=== PATIENT | female | born 1990 | race Caucasian/White ===

== ENCOUNTER → 2017-06-02 | Outpatient (CLI) | payer OTHER ==
[~2017-06-02] MED LIST: INSU100C14 SQ; LEVO75TA73 PO; LEVO88TA43 PO; MULT-1176 PO; NOVOLOG SUBQ; Test Strips MC
== END ==
LOC: LAB 14:28
PROVIDERS: ATTEND Nurse Practitioner Family
DX: E10.9 Type 1 diabetes mellitus without complications (principal); E06.3 Autoimmune thyroiditis; E03.9 Hypothyroidism, unspecified
CPT/HCPCS: 36415; 82040; 82247; 82310; 82374; 82435; 82565; 82947; 83036; 84075; 84132; 84155; 84295; 84443; 84450; 84460; 84520

== ENCOUNTER → 2017-07-27 | Outpatient (CLI) | payer OTHER ==
[~2017-07-27] MED LIST changes: +AMPH20CA15 PO; +BLOO-1318 MC; +Diabetes Supplies; +INSU100I35 SQ; +INSU100I5 SUBQ; +PEN1DIS.48 SC
--- NOTE | 2017-07-27 15:02 | EKG ---
FACILITY: [facility] - [place] PATIENT NAME: DANIA POSADA : [id number] MR: [id number] V: [id number] EXAM DATE: ORDERING PHYSICIAN: YAMILA STINSON TECHNOLOGIST: JOYCELYN Test Reason : DAIBETES Blood Pressure : / mmHG Vent. Rate : 073 BPM Atrial Rate : 073 BPM P-R Int : 118 ms QRS Dur : 082 ms QT Int : 368 ms P-R-T Axes : 042 092 027 degrees QTc Int : 405 ms Normal sinus rhythm with sinus arrhythmia Rightward axis No acute appearing findings No previous ECGs available Confirmed by KATLYN BAZZI ([id number]) on 07/28/2017 5:37:55 AM Referred By: SHANTELL Confirmed By:KATLYN BAZZI
== END ==
LOC: RESP 14:51
PROVIDERS: ATTEND Obstetrics & Gynecology
DX: E11.9 Type 2 diabetes mellitus without complications (principal)
CPT/HCPCS: 93005

== ENCOUNTER → 2017-08-02 | Outpatient (CLI) | payer OTHER ==
[~2017-08-02] MED LIST changes: +EPIN0.3P15 IM; +GLUC1VIA2 IM; +[UNRECOGNIZED DRUG - SUPPLY]; +diabetic supplies
== END ==
LOC: LAB 08:49
PROVIDERS: ATTEND Nurse Practitioner Family
DX: E03.9 Hypothyroidism, unspecified (principal)
CPT/HCPCS: 36415; 84443

== ENCOUNTER 2017-08-14 21:31 | Emergency (ER) | payer OTHER ==
[2017-08-14] MEDS ORDERED: INSU100C14 SQ (21:46)
[2017-08-14] MEDS ORDERED: AMPH20CA15 PO ×2 (21:46)
[2017-08-14] MEDS ORDERED: LEVO88TA43 PO (21:46)
[2017-08-14] MEDS ORDERED: INSULIN ASPART 100 UN/ML VIAL SUBQ ONE (21:50)
--- NOTE | 2017-08-14 21:50 | ER Report ---
History and Physical Time Seen By MD: 21:46 Hx. of Stated Complaint: pt ran out of insulin for pump HPI/ROS CHIEF COMPLAINT: out of insulin HISTORY OF PRESENT ILLNESS: This is a 27 year old female. She has type 1 diabetes. She ran out of insulin tonight. Has a pump with basal dosing and has a prescription waiting for her in the morning at the pharmacy. No other problems. She uses Novalog (Aspart) insulin. Allergies: Coded Allergies: Sulfa (Sulfonamide Antibiotics) (Verified Allergy, Mild, 08/14/17) Home Meds Reported Medications Insulin Aspart (NOVOLOG) 100 Unit/1 Ml Cartridge, 40 UNIT SQ DAILY 08/14/17 Amphet Asp/Amphet/D-Amphet (ADDERALL XR 20 MG CAPSULE) 20 Mg Cap.er.24h, 20 MG PO QDAY 08/14/17 Levothyroxine Sodium (SYNTHROID) 88 Mcg Tablet, 88 MCG PO QDAY 08/14/17 Discontinued Reported Medications Amphet Asp/Amphet/D-Amphet (ADDERALL XR 20 MG CAPSULE) 20 Mg Cap.er.24h, 20 MG PO 08/14/17 Hx Substance Use Disorder: No Hx Alcohol Use: No Constitutional Vital Sign - Last 24 Hours 08/14/17 08/14/17 21:39 22:15 Temp 97.7 97.8 Pulse 72 77 Resp 16 16 B/P (MAP) 125/87 126/64 (84) Pulse Ox 91 95 O2 Delivery Room Air Room Air Physical Exam Alert, no acute distress. No other exam done. 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 Decision to Disposition Date: Aug 14, 2017 Decision to Disposition Time: 22:02 Depart Departure Latest Vital Signs Vital Signs Date Time Temp Pulse Resp B/P (MAP) Pulse Ox O2 Delivery O2 Flow Rate FiO2 08/14/17 22:15 97.8 77 16 126/64 (84) 95 Room Air Impression: Primary Impression: Diabetes type I Condition: Improved Disposition: HOME OR SELF-CARE Patient Instructions: Insulin Aspart, Recombinant (By injection) Additional Instructions: No changes at this time. Fill you prescription as planned tomorrow. Problem Qualifiers Primary Impression: Diabetes type I Diabetes mellitus complication status: without complication Qualified Codes: E10.9 - Type 1 diabetes mellitus without complications NERI CORBIN MD Aug 14, 2017 21:50
[2017-08-14 22:15] VITALS: BP 126/64
== END 2017-08-14 22:18 | disposition home or self-care (01) ==
LOC: ER 21:44 → MERGE 21:44 → ER 22:18
DX: E10.9 Type 1 diabetes mellitus without complications (principal)
CPT/HCPCS: 96372; 99281; J1815

== ENCOUNTER → 2017-11-08 | Outpatient (CLI) | payer OTHER ==
[~2017-11-08] MED LIST changes: +NORE-7 PO
[2017-11-08 09:40] LABS: PLATELET COUNT, AUTOMATED 131 K/uL (150-450)
== END ==
LOC: LAB 08:50
PROVIDERS: ATTEND Nurse Practitioner Family
DX: E10.9 Type 1 diabetes mellitus without complications (principal); E03.9 Hypothyroidism, unspecified; Z86.2 Personal history of diseases of the blood and blood-forming organs and certain disorders involving the immune mechanism
CPT/HCPCS: 36415; 83036; 84443; 85025

== ENCOUNTER → 2017-12-21 | Outpatient (CLI) | payer OTHER ==
[2017-12-21 14:19] LABS: PLATELET COUNT, AUTOMATED 164 K/uL (150-450)
== END ==
LOC: LAB 14:07
PROVIDERS: ATTEND Nurse Practitioner Family
DX: D70.9 Neutropenia, unspecified (principal); R71.8 Other abnormality of red blood cells; E10.9 Type 1 diabetes mellitus without complications
CPT/HCPCS: 36415; 82040; 82247; 82310; 82374; 82435; 82565; 82607; 82746; 82947; 84075; 84132; 84155; 84295; 84450; 84460; 84520; 85007; 85027

== ENCOUNTER → 2018-01-19 | Outpatient (CLI) | payer OTHER ==
[2018-01-19 15:27] LABS: PLATELET COUNT, AUTOMATED 161 K/uL (150-450)
== END ==
LOC: LAB 15:05
PROVIDERS: ATTEND Nurse Practitioner Family
DX: R71.8 Other abnormality of red blood cells (principal)
CPT/HCPCS: 36415; 85025

== ENCOUNTER 2018-01-29 22:26 | Emergency (ER) | payer OTHER ==
[2018-01-29 22:32] VITALS: BP 127/89
--- NOTE | 2018-01-29 22:56 | ER Report ---
History and Physical Time Seen By MD: 22:43 Hx. of Stated Complaint: PT STATES" I HAVE A uti" HPI/ROS CHIEF COMPLAINT: dysuria HISTORY OF PRESENT ILLNESS: pt has had 1 d of dysuria without hematuria, back pain, fever, chills, nausea, vomiting. Has had similar in past. Denies abd pain or vaginal bleeding. Has taken 1 azole with some relief of symptoms. type 1 diabetic on insulin pump with well controlled sugars. REVIEW OF SYSTEMS: Respiratory: No cough, no dyspnea. Cardiovascular: No chest pain, no palpitations. Gastrointestinal: No vomiting, no abdominal pain. Musculoskeletal: No back pain. Remainder of the 14 system rev: Yes Allergies: Coded Allergies: oseltamivir (Verified Allergy, Severe, RASH, 06/02/17) Hypotension, rash, itching, shedding of epithelium of mouth and throat Sulfa (Sulfonamide Antibiotics) (Verified Allergy, Mild, 08/15/17) Home Meds Active Scripts Glucagon (GLUCAGEN) 1 Mg Kit, 1 SYR IM PRN, #1 KIT Prov:MOLLY TYLER APRN [facility] 08/03/17 [Dexcom Sensors] No Conflict Check Prov:MOLLY TYLER APRN [facility] 08/02/17 [diabetic supplies] No Conflict Check Prov:MOLLY TYLER APRNP-C 07/29/17 Pen Needle, Diabetic (Insulin Pen Needle) 31 Gauge X 1/6" Dis.needle, EACH SC 5XD, #150 0 Refills Prov:MOLLY TYLER APRN [facility] 07/05/17 [Diabetes Supplies] No Conflict Check Prov:MOLLY TYLER APRN [facility] 06/28/17 Blood Sugar Diagnostic (ONE TOUCH ULTRA TEST STRIPS) 1 Each Strip, 1 EACH MC 6- 10 daily, #250 STRIP 6 Refills Prov:MOLLY TYLER APRNP-C 06/06/17 [Test Strips] 1 EACH No Conflict Check, 1 EACH MC DIRECTED, #300 EACH 12 Refills Prov:MOLLY TYLER APRN [facility] 06/02/17 Insulin Aspart (NOVOLOG) 100 Unit/Ml Soln, 67 UNIT SUBQ DAILY, #2 VIAL 5 Refills Prov:MOLLY TYLER APRN [facility] 06/02/17 Reported Medications Insulin Aspart (NOVOLOG) 100 Unit/1 Ml Cartridge, 40 UNIT SQ DAILY 08/14/17 Amphet Asp/Amphet/D-Amphet (ADDERALL XR 20 MG CAPSULE) 20 Mg Cap.er.24h, 20 MG PO QDAY 08/14/17 Levothyroxine Sodium (SYNTHROID) 88 Mcg Tablet, 88 MCG PO QDAY 08/14/17 Multivits,Ca,Minerals/Iron/Fa (WOMEN'S DAILY CAPLET) 1 Each Tablet, 1 EACH PO DAILY 06/02/17 Discontinued Scripts Noreth A-Et Estra/Fe Fumarate (LO LOESTRIN FE 1-10 TABLET) 1 Each Tablet, 1 TAB PO DAILY, #3 PACK 0 Refills Prov:MOLLY TYLER APRN-Td 11/08/17 Amphet Asp/Amphet/D-Amphet (ADDERALL XR 20 MG CAPSULE) 20 Mg Cap.er.24h, 1 CAP PO DAILY, #30 CAP 0 Refills May fill on or after 01/07/18 Prov:MOLLY TYLER APRN 11/08/17 Levothyroxine Sodium (SYNTHROID) 88 Mcg Tablet, 1 TAB PO QDAY, #90 TAB 1 Refill Prov:MOLLY TYLER APRN-Td 08/02/17 Reviewed Nurses Notes: Yes Smoking Status: Never Smoker Hx Substance Use Disorder: No Hx Alcohol Use: No Constitutional Vital Sign - Last 24 Hours 01/29/18 22:32 Temp 98.1 Pulse 79 Resp 16 B/P (MAP) 127/89 Pulse Ox 98 O2 Delivery Room Air Physical Exam General Appearance: The patient is alert, has no immediate need for airway protection and no current signs of toxicity. [ ] Eyes: Pupils equal and round no injection. Respiratory: Chest is non tender, lungs are clear to auscultation. Cardiac: regular rate and rhythm [ ] Gastrointestinal: Abdomen is soft and non tender, no masses, bowel sounds normal. Musculoskeletal Extremities have full range of motion and are non tender. Skin: No rashes or lesions. [ ] DIFFERENTIAL DIAGNOSIS: After history and physical exam differential diagnosis was considered for uti//pyelonephritis or other emergent etiology Medical Decision Making Data Points Laboratory Hematology Test 01/29/18 22:31 Urine Color Straw Urine Clarity Slightly-cloudy Urine pH 6.0 pH (4.8-9.5) Urine Specific [place] 1.001 Urine Protein Negative mg/dL (NEGATIVE) Urine Glucose (UA) Negative mg/dL (NEGATIVE) Urine Ketones Negative mg/dL (NEGATIVE) Urine Blood Moderate (NEGATIVE) Urine Nitrite Negative (NEGATIVE) Urine Bilirubin Negative (NEGATIVE) Urine Urobilinogen Negative mg/dL (0.2-1.9) Urine Leukocyte Esterase Large (NEGATIVE) Urine RBC <1 /HPF (0-2/HPF) Urine WBC 29 /HPF (0-5/HPF) Urine Squamous Epithelial Cells None /LPF (</=FEW) Urine Bacteria Few /HPF (NONE-FEW) Urine Hyaline Casts Few /LPF (NONE-FEW) Urine Mucus None /HPF (NONE-FEW) Urine HCG, Qualitative Negative (NEGATIVE) Chemistry Test 01/29/18 22:31 Urine Color Straw Urine Clarity Slightly-cloudy Urine pH 6.0 pH (4.8-9.5) Urine Specific [place] 1.001 Urine Protein Negative mg/dL (NEGATIVE) Urine Glucose (UA) Negative mg/dL (NEGATIVE) Urine Ketones Negative mg/dL (NEGATIVE) Urine Blood Moderate (NEGATIVE) Urine Nitrite Negative (NEGATIVE) Urine Bilirubin Negative (NEGATIVE) Urine Urobilinogen Negative mg/dL (0.2-1.9) Urine Leukocyte Esterase Large (NEGATIVE) Urine RBC <1 /HPF (0-2/HPF) Urine WBC 29 /HPF (0-5/HPF) Urine Squamous Epithelial Cells None /LPF (</=FEW) Urine Bacteria Few /HPF (NONE-FEW) Urine Hyaline Casts Few /LPF (NONE-FEW) Urine Mucus None /HPF (NONE-FEW) Urine HCG, Qualitative Negative (NEGATIVE) Urinalysis Test 01/29/18 22:31 Urine Color Straw Urine Clarity Slightly-cloudy Urine pH 6.0 pH (4.8-9.5) Urine Specific [place] 1.001 Urine Protein Negative mg/dL (NEGATIVE) Urine Glucose (UA) Negative mg/dL (NEGATIVE) Urine Ketones Negative mg/dL (NEGATIVE) Urine Blood Moderate (NEGATIVE) Urine Nitrite Negative (NEGATIVE) Urine Bilirubin Negative (NEGATIVE) Urine Urobilinogen Negative mg/dL (0.2-1.9) Urine Leukocyte Esterase Large (NEGATIVE) Urine RBC <1 /HPF (0-2/HPF) Urine WBC 29 /HPF (0-5/HPF) Urine Squamous Epithelial Cells None /LPF (</=FEW) Urine Bacteria Few /HPF (NONE-FEW) Urine Hyaline Casts Few /LPF (NONE-FEW) Urine Mucus None /HPF (NONE-FEW) Urine HCG, Qualitative Negative (NEGATIVE) ED Course/Re-evaluation ED Course UA c/w uti; hcg negative; pt well appearing, non toxic. Will tx with 1st dose abx in ED and d/c with SRp's. Decision to Disposition Date: Jan 29, 2018 Decision to Disposition Time: 22:58 Depart Departure Latest Vital Signs Vital Signs Date Time Temp Pulse Resp B/P (MAP) Pulse Ox O2 Delivery O2 Flow Rate FiO2 01/29/18 22:32 98.1 79 16 127/89 98 Room Air Impression: Primary Impression: UTI (urinary tract infection) Condition: Improved Disposition: HOME OR SELF-CARE Referrals: MOLLY TYLER APRN [facility] (PCP) New Scripts Nitrofurantoin Monohyd/M-Cryst (MACROBID 100 MG CAPSULE) 100 Mg Capsule 100 MG PO BID for 7 Days, #14 CAPSULE Prov: LBAS CRANDALL MD 01/29/18 Additional Instructions: Return for worsening symptoms, vomiting, fevers, adverse reaction to medication, or any concerns. Problem Qualifiers Primary Impression: UTI (urinary tract infection) Urinary tract infection type: acute cystitis Hematuria presence: without hematuria Qualified Codes: N30.00 - Acute cystitis without hematuria BLAS CRANDALL MD Jan 29, 2018 22:55
[2018-01-29] MEDS ORDERED: NITR-105 PO (23:00)
[2018-01-29] MEDS ORDERED: NITROFURANTOIN MONO 100 MG PO ONE (23:00)
== END 2018-01-29 23:23 | disposition home or self-care (01) ==
LOC: ER 22:48
DX: N30.00 Acute cystitis without hematuria (principal)
CPT/HCPCS: 81001; 81025; 99283

== ENCOUNTER 2018-02-07 13:00 | Outpatient (RCR) | payer OTHER ==
--- NOTE | 2017-11-25 14:31 | PT INITIAL EVALUATION ---
MEDICAL DIAGNOSIS: M25.561 R knee pain TREATMENT DIAGNOSIS: Same, R IT band tendinitis, R lateral meniscal pain DATE OF ONSET: 07/07/17 SUBJECTIVE: Babita Floyd presents to PT for insidious onset of lateral R knee ache in the last four months with training on an elliptical 30-40 miles per week. Lateral knee pain increased from ache to sharp stabbing pain to the point she stopped training 2 months ago. 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 Pain location is R lateral knee, distal lateral hamstrings, posterior hip and described as ache (knee, hip), tan (hamstrings). Pain scale is 3 on a ten point pain scale. Pain is worse with and better with Icy Hot patches, Tylenol. REHAB PROBLEM LIST: Increased Pain Decreased ROM Decreased Strength Decreased Function Decreased Gait PREVIOUS MEDICAL HISTORY: DM I (25 years). OCCUPATION: RN, [employer]. OBJECTIVE: Posture: Long R LE by 3/4", valgus knees, everted R calcaneus. ROM: R knee PROM extension -7 degrees, flexion WNL. R hip PROM IR/ER at 90 deg. flexion is 25/40 deg., L 60/60 degrees, capsular end feel. Strength: R quad 4/5, weak VMO contraction, lateral tracking patella. Palpation: Painful distal IT band, anterior horn of the lateral meniscus. No divets palpable at the lateral femoral condyle. Special Tests: Negative ACL, PCL, varus, valgus tests B knee. Rubin's negative for clicks but tender R lateral meniscus. Hamstring flexibility R 60 deg., L 70 degrees. R hip scour with mild posterolateral hip joint pain and tight capsule. Negative R hip LYLE's for pain, mildly tight. Positive Ashish and Laverne's test R LE, L LE mild tightness. Mobility: Normal patellofemoral joint mobility, mild hypomobility with ER R femorotibial joint. Gait: Long R LE, R pronation beyond midstance and 4 toes showing, L 3 toes showing. ASSESSMENT: Babita Floyd presents with R IT band tendinitis, mild lateral meniscal irritation, altered gait and weak R quad with lateral tracking patella from long R LE. She's started on home stretching and an adjustable L heel lift. Short Term Goals/Patient's Goals: One month: Babita exercises with R knee pain 5/10. Two months: Babita exercises on the elliptical with R knee pain 0-2/10. PLAN: Patient to be seen for Manual Therapy Strengthening/condition Ice/Heat Range of Motion Spinal Stabilization Stretching Neuromuscular Re-ed Electrical Stim Gait Trg/Balance Trg Home Exercise Program 2x/Week for 2 Months Thank you for this referral. If you have any questions, comments, or concerns about this report or plan, please contact me at . EDMUNDOD
--- NOTE | 2018-01-31 15:06 | PT PLAN OF CARE ---
Physician: Thelma Lezama APRN, [facility] Patient is being seen: 1-2x/week Therapist: Sagrario Cuevas PT Medical Diagnosis: M25.561 R knee pain Treatment Diagnosis: Same, R IT band tendinitis, R lateral meniscus pain Date of Onset: 07/07/17 Date of Initial Evaluation: 11/25/17 Date patient was last seen: 01/31/18 Number of treatments: 11 Number of cancellations/No shows: 0 INTERVENTIONS: Manual Therapy, Strengthening/condition, Stretching, Home Exercise Program GOALS/PATIENT'S GOAL: One month: Babita exercises with R knee pain 5/10. not met Two months: Babita exercises on the elliptical with R knee pain 0-2/10. progressing Patient Compliance: Excellent Prognosis: Excellent Reasons for continuing therapy: S: Babita's been gone for illness and vacation. She's started back to elliptical 30 min. at a slow pace with R lateral knee pain 3/10. She's doing HEP of stretching. Posture: Long R LE by 3/4", valgus knees, everted R calcaneus. ROM: R knee PROM extension remains -7 degrees, flexion WNL. Strength: R quad 4+/5, moderate VMO contraction, less lateral tracking patella. Palpation: Painful distal IT band. Special Tests: Hamstring flexibility B 70 degrees. Positive L Ashish, negative R Ashish test and negative Laverne's test. The anterolateral hip muscles remain tight. Mobility: Normal knee joint mobility. Gait: With external post, Babita ambulates with mild R Trendelenberg and weak L lumbar stabilizers. A/P: Babita Floyd is improving flexibility and strength, and can continue strengthening with reduced frequency, more HEP. If you agree, we'll continue at 1x/week to 2 weeks for 8 weeks to goals set. Thank you. AICHA
[~2018-02-07 13:00] MED LIST changes: +NITR-105 PO
[2018-02-10] MEDS ORDERED: NOVOLOG SUBQ (09:09)
== END 2018-02-23 ==
LOC: PT 13:00
PROVIDERS: ATTEND Nurse Practitioner Family
DX: M25.561 Pain in right knee (principal)
CPT/HCPCS: 97162

== ENCOUNTER → 2018-03-02 | Outpatient (CLI) | payer OTHER ==
[~2018-03-02] MED LIST changes: +AMPH15TA3 PO; +MUPI15CR2 TP
[2018-03-02 10:40] LABS: PLATELET COUNT, AUTOMATED 164 K/uL (150-450)
== END ==
LOC: LAB 10:07
PROVIDERS: ATTEND Nurse Practitioner Family
DX: E10.9 Type 1 diabetes mellitus without complications (principal); E03.9 Hypothyroidism, unspecified
CPT/HCPCS: 36415; 83036; 85025

== ENCOUNTER → 2018-05-10 | Outpatient (CLI) | payer OTHER | LOC: LAB 09:17 | PROVIDERS: ATTEND Student in an Organized Health Care Education/Training Program | DX: Z34.91 Encounter for supervision of normal pregnancy, unspecified, first trimester (principal) | CPT/HCPCS: 87491; 87591 ==

== ENCOUNTER → 2018-08-29 | Outpatient (CLI) | payer OTHER | LOC: LAB 17:06 | PROVIDERS: ATTEND Nurse Practitioner Family | DX: E10.9 Type 1 diabetes mellitus without complications (principal); E03.9 Hypothyroidism, unspecified | CPT/HCPCS: 36415; 83036; 84443 ==

== ENCOUNTER → 2018-09-25 | Outpatient (CLI) | payer OTHER ==
[~2018-09-25] MED LIST changes: +ASPI-760 PO; +DIPH0.5S2 IM
[2018-09-25 10:08] LABS: PLATELET COUNT, AUTOMATED 173 K/uL (150-450)
== END ==
LOC: LAB 09:57
PROVIDERS: ATTEND Student in an Organized Health Care Education/Training Program
DX: Z34.92 Encounter for supervision of normal pregnancy, unspecified, second trimester (principal)
CPT/HCPCS: 36415; 85025

== ENCOUNTER 2018-10-02 22:28 | Observation (INO) | payer OTHER ==
[~2018-10-02] VITALS: Ht 162.6 cm; Wt 74.8 kg
[2018-10-02] MEDS ORDERED: LR(*) 1000 ML BAG 1,000 ML IV PRN ×2 (22:31→23:34)
[2018-10-02] MEDS ORDERED: DLR(*) 1000 ML BAG 1,000 ML IV PRN (22:31)
[2018-10-02 23:00] VITALS: BP 127/82; Ht 162.6 cm; Wt 74.8 kg
[2018-10-02] MEDS: ONDANSETRON 4 MG/2 ML VIAL IVP PRN (23:39)
[2018-10-02 23:41] LABS: PLATELET COUNT, AUTOMATED 153 K/uL (150-450)
[2018-10-03] MEDS: NS(*) 0.9% 1000 ML BAG 1,000 ML IV SCH ×2 (00:37→04:17)
[2018-10-03] MEDS: PROMETHAZINE 25 MG/ML 1 ML AMP IVP PRN ×2 (00:44→01:39)
[2018-10-03] MEDS ORDERED: APAP/HYDROCODONE 325/5 TAB PO PRN (03:05)
[2018-10-03] MEDS: ONDANSETRON 4 MG/2 ML VIAL IVP PRN (03:20)
--- NOTE | 2018-10-03 09:16 | History & Physical ---
History of Present Illness Age of Patient: 28 : 1 Para or TPAL: 0 Estimated Gestational Age: 30 Chief Complaint contractions History of Present Illness [address] Henson here with report of nausea and vomiting today leading to worsening contractions. Symptoms began shortly after dinner. Pt is Type 1 diabetic with insulin pump management. BS stable in 120s upon arrival. Contractions noted every 4 min and notably uncomfortable. Recent intercourse about 24 hrs ago. Denies vaginal bleeding or leaking fluid. History Allergies: Coded Allergies: oseltamivir (Verified Allergy, Severe, RASH, 06/02/17) Hypotension, rash, itching, shedding of epithelium of mouth and throat Sulfa (Sulfonamide Antibiotics) (Verified Allergy, Mild, 08/15/17) Family History: Disorder of metabolism FATHER FH: myocardial infarction FATHER FH: rheumatoid arthritis MOTHER FH: type 2 diabetes paternal grandmother FHx: coronary artery disease FATHER Med Rec Home Meds Active Scripts [Dexcom Sensors] No Conflict Check Prov:MOLLY TYLER APRN-C 09/27/18 Insulin Aspart (NOVOLOG) 100 Unit/Ml Soln, 102 UNIT SUBQ DAILY, #3 VIAL 4 Refills Prov:MOLLY TYLER APRNP-C 08/29/18 Levothyroxine Sodium (SYNTHROID) 88 Mcg Tablet, 1 TAB PO QDAY, #90 TAB 0 Refills Prov:MOLLY TYLER APRN GYPSUM CALCINER-C 08/16/18 One Touch Ultra Test Strips (ONE TOUCH ULTRA TEST STRIPS) 1 Each Strip, 1 EACH MC 6-10 daily, #250 STRIP 6 Refills Prov:MOLLY TYLER APRN-C 08/16/18 Glucagon (GLUCAGEN) 1 Mg Kit, 1 SYR IM PRN, #1 KIT Prov:MOLLY TYLER APRN GYPSUM CALCINER-C 08/03/17 [diabetic supplies] No Conflict Check Prov:MOLLY TYLER APRN-C 07/29/17 Pen Needle, Diabetic (Insulin Pen Needle) 31 Gauge X 1/6" Dis.needle, EACH SC 5XD, #150 0 Refills Prov:MOLLY TYLER APRNP-C 07/05/17 [Diabetes Supplies] No Conflict Check Prov:MOLLY TYLER APRNP-C 06/28/17 [Test Strips] 1 EACH No Conflict Check, 1 EACH MC DIRECTED, #300 EACH 12 Refills Prov:MOLLY TYLER APRN 06/02/17 Reported Medications Aspirin (LOW DOSE ASPIRIN EC) 81 Mg Tablet.dr, 81 MG PO 09/25/18 Insulin Aspart (NOVOLOG) 100 Unit/1 Ml Cartridge, 40 UNIT SQ DAILY 08/14/17 Multivits,Ca,Minerals/Iron/Fa (WOMEN'S DAILY CAPLET) 1 Each Tablet, 1 EACH PO DAILY 06/02/17 Discontinued Reported Medications Amphet Asp/Amphet/D-Amphet (ADDERALL XR 20 MG CAPSULE) 20 Mg Cap.er.24h, 20 MG PO QDAY 08/14/17 Discontinued Scripts Mupirocin Rajesh 2% Cream (MUPIROCIN 2% CREAM) 15 Gm Cream..g., 1 SIGRID TP TID, #1 TUBE 1 Refill Prov:MOLLY TYLER APRN 03/02/18 Review of Systems All Systems Reviewed/Normal: Yes, Except as Noted Gastrointestinal: Nausea, Vomiting Exam General Exam Vital Signs Vital Signs Date Time Temp Pulse Resp B/P (MAP) Pulse Ox O2 Delivery O2 Flow Rate FiO2 10/02/18 23:00 97.8 110 24 127/82 (97) 96 Cervical Dialation: 0 Cervical Effacement (%): 0 Station: Ballotable Fetus Heart Tone Variabilty: Moderate FHT Accelerations: 10X10 FHT Category: I Medical Decision Making Data Points Result Diagram: 10/02/18 2327 10/02/182326 Hematology Test 10/02/18 22:56 10/02/18 23:27 10/03/18 00:35 10/03/18 01:20 Whole Blood Glucose 124 mg/DL (75-110) Red Blood Count 4.17 M/uL (4.17-5.56) Mean Corpuscular Volume 99.3 fL (80.0-96.0) Mean Corpuscular Hemoglobin 33.3 pg (26.0-33.0) Mean Corpuscular Hemoglobin Concent 33.5 g/dL (32.0-36.0) Red Cell Distribution Width 14.5 % (11.5-14.5) Mean Platelet Volume 8.8 fL (7.2-11.1) Neutrophils (%) (Auto) 90.0 % (39.4-72.5) Lymphocytes (%) (Auto) 4.2 % (17.6-49.6) Monocytes (%) (Auto) 4.1 % (4.1-12.4) Eosinophils (%) (Auto) 0.8 % (0.4-6.7) Basophils (%) (Auto) 0.9 % (0.3-1.4) Nucleated RBC Relative Count (auto) 0.0 /100WBC Neutrophils # (Auto) 5.5 K/uL (2.0-7.4) Lymphocytes # (Auto) 0.3 K/uL (1.3-3.6) Monocytes # (Auto) 0.2 K/uL (0.3-1.0) Eosinophils # (Auto) 0.0 K/uL (0.0-0.5) Basophils # (Auto) 0.1 K/uL (0.0-0.1) Nucleated RBC Absolute Count (auto) 0.00 K/uL Peripheral Blood Smear Yes Y/N Sodium Level 132 mmol/L (137-145) Potassium Level 3.6 mmol/L (3.5-5.0) Chloride Level 105 mmol/L (98-107) Carbon Dioxide Level 18 mmol/L (22-31) Blood Urea Nitrogen 12 mg/dl (7-18) Creatinine 0.50 mg/dl (0.52-1.04) Glomerular Filtration Rate Calc > 60.0 Random Glucose 139 mg/dl (75-110) Calcium Level 8.7 mg/dl (8.4-10.2) Total Bilirubin 0.8 mg/dl (0.2-1.3) Aspartate Amino Transf (AST/SGOT) 36 U/L (0-35) Alanine Aminotransferase (ALT/SGPT) 46 U/L (0-56) Alkaline Phosphatase 130 U/L (0-126) Total Protein 6.7 g/dl (6.3-8.2) Albumin 3.6 g/dl (3.5-5.0) Fibronectin Positive Urine Color Yellow Urine Clarity Clear Urine pH 5.0 pH (4.8-9.5) Urine Specific Howells 1.020 Urine Protein Negative mg/dL (NEGATIVE) Urine Glucose (UA) 50 mg/dL (NEGATIVE) Urine Ketones 80 mg/dL (NEGATIVE) Urine Blood Negative (NEGATIVE) Urine Nitrite Negative (NEGATIVE) Urine Bilirubin Negative (NEGATIVE) Urine Urobilinogen Negative mg/dL (0.2-1.9) Urine Leukocyte Esterase Negative (NEGATIVE) Urine RBC <1 /HPF (0-2/HPF) Urine WBC 1 /HPF (0-5/HPF) Urine Squamous Epithelial Cells Many /LPF (</=FEW) Urine Transitional Epithelial Cells Few /LPF (NONE-FEW) Urine Bacteria Negative /HPF (NONE-FEW) Urine Mucus None /HPF (NONE-FEW) Chemistry Test 10/02/18 22:56 10/02/18 23:27 10/03/18 00:35 10/03/18 01:20 Whole Blood Glucose 124 mg/DL (75-110) White Blood Count 6.1 k/uL (4.5-11.0) Red Blood Count 4.17 M/uL (4.17-5.56) Hemoglobin 13.9 g/dL (12.0-16.0) Hematocrit 41.4 % (34.0-47.0) Mean Corpuscular Volume 99.3 fL (80.0-96.0) Mean Corpuscular Hemoglobin 33.3 pg (26.0-33.0) Mean Corpuscular Hemoglobin Concent 33.5 g/dL (32.0-36.0) Red Cell Distribution Width 14.5 % (11.5-14.5) Platelet Count 153 K/uL (150-450) Mean Platelet Volume 8.8 fL (7.2-11.1) Neutrophils (%) (Auto) 90.0 % (39.4-72.5) Lymphocytes (%) (Auto) 4.2 % (17.6-49.6) Monocytes (%) (Auto) 4.1 % (4.1-12.4) Eosinophils (%) (Auto) 0.8 % (0.4-6.7) Basophils (%) (Auto) 0.9 % (0.3-1.4) Nucleated RBC Relative Count (auto) 0.0 /100WBC Neutrophils # (Auto) 5.5 K/uL (2.0-7.4) Lymphocytes # (Auto) 0.3 K/uL (1.3-3.6) Monocytes # (Auto) 0.2 K/uL (0.3-1.0) Eosinophils # (Auto) 0.0 K/uL (0.0-0.5) Basophils # (Auto) 0.1 K/uL (0.0-0.1) Nucleated RBC Absolute Count (auto) 0.00 K/uL Peripheral Blood Smear Yes Y/N Glomerular Filtration Rate Calc > 60.0 Calcium Level 8.7 mg/dl (8.4-10.2) Total Bilirubin 0.8 mg/dl (0.2-1.3) Aspartate Amino Transf (AST/SGOT) 36 U/L (0-35) Alanine Aminotransferase (ALT/SGPT) 46 U/L (0-56) Alkaline Phosphatase 130 U/L (0-126) Total Protein 6.7 g/dl (6.3-8.2) Albumin 3.6 g/dl (3.5-5.0) Fibronectin Positive Urine Color Yellow Urine Clarity Clear Urine pH 5.0 pH (4.8-9.5) Urine Specific Howells 1.020 Urine Protein Negative mg/dL (NEGATIVE) Urine Glucose (UA) 50 mg/dL (NEGATIVE) Urine Ketones 80 mg/dL (NEGATIVE) Urine Blood Negative (NEGATIVE) Urine Nitrite Negative (NEGATIVE) Urine Bilirubin Negative (NEGATIVE) Urine Urobilinogen Negative mg/dL (0.2-1.9) Urine Leukocyte Esterase Negative (NEGATIVE) Urine RBC <1 /HPF (0-2/HPF) Urine WBC 1 /HPF (0-5/HPF) Urine Squamous Epithelial Cells Many /LPF (</=FEW) Urine Transitional Epithelial Cells Few /LPF (NONE-FEW) Urine Bacteria Negative /HPF (NONE-FEW) Urine Mucus None /HPF (NONE-FEW) Urinalysis Test 10/03/18 01:20 Urine Color Yellow Urine Clarity Clear Urine pH 5.0 pH (4.8-9.5) Urine Specific Howells 1.020 Urine Protein Negative mg/dL (NEGATIVE) Urine Glucose (UA) 50 mg/dL (NEGATIVE) Urine Ketones 80 mg/dL (NEGATIVE) Urine Blood Negative (NEGATIVE) Urine Nitrite Negative (NEGATIVE) Urine Bilirubin Negative (NEGATIVE) Urine Urobilinogen Negative mg/dL (0.2-1.9) Urine Leukocyte Esterase Negative (NEGATIVE) Urine RBC <1 /HPF (0-2/HPF) Urine WBC 1 /HPF (0-5/HPF) Urine Squamous Epithelial Cells Many /LPF (</=FEW) Urine Transitional Epithelial Cells Few /LPF (NONE-FEW) Urine Bacteria Negative /HPF (NONE-FEW) Urine Mucus None /HPF (NONE-FEW) VTE Prophylasis: Adult Deep Vein Thrombosis/Pulmonary: No Pharmacological Contraindicati: Pt at Low Risk for VTE Mechanical Contraindications: Pt at Low Risk for VTE Assessment and Plan Problems: (1) Threatened premature labor affecting , less than 37 weeks in third trimester, antepartum Assessment & Plan: IVF hydration and rest. Will check labs including FFN. If threat low, will hydrate and home with precautions. If threat increases, may consider steroids but risk blood sugar volatility as a result. (2) Diabetes type I Status: Acute Problem Qualifiers (1) Diabetes type I: Diabetes mellitus complication status: without complication Qualified Codes: E10.9 - Type 1 diabetes mellitus without complications AQUILES ALAN MD October 03, 2018 09:16
--- NOTE | 2018-10-03 19:17 | OB/GYN Discharge Summary ---
Discharge Summary Reason for Hosp/Final Diag: (1) Threatened premature labor affecting , less than 37 weeks in third trimester, antepartum Hospital Course & Plan: This morning the patient's contractions have subsided and she is no longer vomiting. She is tolerating po fluids and voiding well. She will eat breakfast to see id she can tolerate food. She did have a + fFN, but she was counseled by nursing of the poor predictive value and that will will just continue to monitor for PTL closely. If she does present with PTL, we will consider steriods, but will not administer at this time because of her Type I diabetes. She was encouraged to hydrate, rest, and return for her regularly scheduled OB visit with Dr. Henson or sooner if needed. 'Dr Henson was consulted on this patient and also spoke to nursing about discharge home. Lates Vital Signs Vital Signs Date Time Temp Pulse Resp B/P (MAP) Pulse Ox O2 Delivery O2 Flow Rate FiO2 10/02/18 23:00 97.8 110 24 127/82 (97) 96 Weight (Pounds): 165 Result Diagram: 10/02/18232610/02/182326 Condition: Improved Discharge: Home Home Meds Active Scripts [Dexcom Sensors] No Conflict Check Prov:MOLLY TYLER APRN-C 09/27/18 Insulin Aspart (NOVOLOG) 100 Unit/Ml Soln, 102 UNIT SUBQ DAILY, #3 VIAL 4 Refills Prov:MOLLY TYLER APRNP-C 08/29/18 Levothyroxine Sodium (SYNTHROID) 88 Mcg Tablet, 1 TAB PO QDAY, #90 TAB 0 Refills Prov:MOLLY TYLER APRNP-C 08/16/18 One Touch Ultra Test Strips (ONE TOUCH ULTRA TEST STRIPS) 1 Each Strip, 1 EACH MC 6-10 daily, #250 STRIP 6 Refills Prov:MOLLY TYLER APRN-C 08/16/18 Glucagon (GLUCAGEN) 1 Mg Kit, 1 SYR IM PRN, #1 KIT Prov:MOLLY TYLER APRNP-C 08/03/17 [diabetic supplies] No Conflict Check Prov:MOLLY TYLER APRN-C 07/29/17 Pen Needle, Diabetic (Insulin Pen Needle) 31 Gauge X 1/6" Dis.needle, EACH SC 5XD, #150 0 Refills Prov:MOLLY TYLER APRN 07/05/17 [Diabetes Supplies] No Conflict Check Prov:MOLLY TYLER APRN 06/28/17 [Test Strips] 1 EACH No Conflict Check, 1 EACH MC DIRECTED, #300 EACH 12 Refills Prov:MOLLY TYLER APRN 06/02/17 Reported Medications Aspirin (LOW DOSE ASPIRIN EC) 81 Mg Tablet.dr, 81 MG PO 09/25/18 Insulin Aspart (NOVOLOG) 100 Unit/1 Ml Cartridge, 40 UNIT SQ DAILY 08/14/17 Multivits,Ca,Minerals/Iron/Fa (WOMEN'S DAILY CAPLET) 1 Each Tablet, 1 EACH PO DAILY 06/02/17 Discontinued Reported Medications Amphet Asp/Amphet/D-Amphet (ADDERALL XR 20 MG CAPSULE) 20 Mg Cap.er.24h, 20 MG PO QDAY 08/14/17 Discontinued Scripts Mupirocin Rajesh 2% Cream (MUPIROCIN 2% CREAM) 15 Gm Cream..g., 1 SIGRID TP TID, #1 TUBE 1 Refill Prov:MOLLY TYLER APRN 03/02/18 Follow up in: Keep scheduled appoint Discharge Diet: As Tolerates, Resume Prior Admit Diet Discharge Activity: As Tolerates SCOTT GLASS CNM October 03, 2018 19:17
== END 2018-10-03 08:56 | disposition home or self-care (01) ==
LOC: OB 22:28
PROVIDERS: ADMIT Obstetrics & Gynecology; ATTEND Obstetrics & Gynecology
DX: O47.03 False labor before 37 completed weeks of gestation, third trimester (principal); O24.013 Pre-existing type 1 diabetes mellitus, in pregnancy, third trimester
CPT/HCPCS: 36416; 59025; 81001; 82731; 82948; 85025; G0378; G0379; J2405; J2550; J7030; J7120; 82040; 82247; 82310; 82374; 82435; 82565; 82947; 84075; 84132; 84155; 84295; 84450; 84460; 84520

== ENCOUNTER 2018-10-05 08:31 | Outpatient (RCR) | payer OTHER ==
[2018-10-02 23:00] VITALS: Wt 80.0 kg
[2018-10-05 08:55] VITALS: BP 113/72
--- NOTE | 2018-10-05 10:29 | ONCOLOGY CONSULTATION ---
EVENT DATE: October 05, 2018 REFERRING PHYSICIAN Thelma Lezama, [employer]IN[employer]IAN [employer], RO[employer]MASTER-C REASON FOR CONSULTATION Establishment of care for a patient with history of aplastic anemia as a child. HEMATOLOGY HISTORY Patient is a 28-year old female who is currently with expected date of delivery December 2018. Patient was diagnosed at the age of 9 after a bone marrow biopsy with aplastic anemia and, as per patient, she was treated at that time with ATG and she remained sick for about 18 months and after that she did not have any problems so far. She has also another autoimmune disease with Irais's disease and her mother had rheumatoid arthritis. Patient currently is and she does not have much complaints except for some symptoms related to her like exertional shortness of breath and mild fatigue. PAST MEDICAL HISTORY 1. Aplastic anemia at the age of 9, in remission. 2. Type 1 diabetes mellitus, on insulin pump. 3. Irais's disease. PAST SURGICAL HISTORY 1. Septoplasty. 2. Bone marrow biopsy as a child. FAMILY HISTORY Mother had rheumatoid arthritis but no family history of cancer or blood diseases. SOCIAL HISTORY Patient is and she does not have children. This is her first . She works as an RN. Denies any abuse of tobacco, alcohol or drugs. CURRENT MEDICATIONS 1. NovoLog insulin. 2. Synthroid 88 mcg daily. 3. vitamins. 4. Baby aspirin 81 mg daily. ALLERGIES Penicillin, which causes itching all over her body and Tamiflu, which causes generalized erythema. REVIEW OF SYSTEMS CONSTITUTIONAL: No appetite or weight change. No fever, chills or sweating. No recent infection. HEENT: Ears: No tinnitus or hearing problem. Nose: No nasal discharge or epistaxis. Throat: No sore throat or mouth ulcers. Eyes: No diplopia or visual changes. RESPIRATORY: She has shortness of breath due to her . CARDIOVASCULAR: No chest pain, orthopnea, or paroxysmal nocturnal dyspnea (PND). No edema. No palpitations. GASTROINTESTINAL: No nausea or vomiting. No diarrhea or constipation. No change in bowel movements. No heartburn or swallowing difficulties. No abdominal pain. No jaundice. No hematemesis, melena or rectal bleeding. GENITOURINARY: Patient has had heavy periods for years, and she has been seen by a binder layer, and she was offered uterine ablation, but the patient refused the procedure. As per patient, she has had heavy periods for a total of seven days every month. MUSCULOSKELETAL: No pain in the muscles, joints or bones. NEUROLOGICAL: No tingling or numbness in the hands or feet. No headaches or convulsions. HEMATOLOGIC/LYMPHATIC: She has mild fatigue. SKIN: No skin rash or lumps. PSYCHIATRIC: No anxiety or depression. PHYSICAL EXAMINATION GENERAL: Looks stable. Well-developed, well-nourished, and in no acute distress. VITAL SIGNS: Blood pressure 113/72, pulse 84 per minute, respirations 16 per minute, temperature 97.5, pulse ox 96% on room air. HEENT: Head: Atraumatic. No sinus tenderness to palpation. Eyes: No icterus or conjunctivitis. Mouth and Throat: No oral thrush or mucositis. NECK: Supple. No cervical or supraclavicular lymphadenopathy. LUNGS: Clear to auscultation and percussion bilaterally. HEART: Regular rate and rhythm. No gallops, murmurs, clicks or rubs. ABDOMEN: Distended because of her . EXTREMITIES: No cyanosis, clubbing or edema. LYMPHATICS: No peripheral lymphadenopathy. NEUROLOGICAL: Conscious, alert and oriented x3. No focal motor or sensory deficits. PSYCHIATRIC: Mood and affect appear normal. SKIN: No skin rash, bruise or purpuric eruption. LABORATORY [*] IMPRESSION History of aplastic anemia at the age of 9, diagnosed after bone marrow aspiration biopsy and patient treated with ATG and currently in remission. Her last CBC done on October 02, 2018, showed white count 6.1, hemoglobin 13.9, hematocrit 41.4, platelets 153,000. All her blood counts are within the normal range and no hematological intervention is required at the moment. I am planning to check her CBC once a month during her and after that we will space the CBC every three to six months to be checked. I am planning to see her in three months from now with CBC. Patient was advised to contact us for any problems related to her blood count. PLAN 1. CBC once monthly. 2. Patient to return in three months with CBC. 3. Patient to contact us for any concerns or complaints. AICHA
== END 2018-11-06 15:44 | disposition home or self-care (01) ==
LOC: ONC 08:31
PROVIDERS: ATTEND Internal Medicine Hematology
DX: D61.9 Aplastic anemia, unspecified (principal); R53.83 Other fatigue; Z3A.00 Weeks of gestation of pregnancy not specified
CPT/HCPCS: 99213

== ENCOUNTER → 2018-10-12 | Outpatient (CLI) | payer OTHER ==
[2018-10-02 23:00] VITALS: BMI 28.3
== END ==
LOC: LAB 11:37
PROVIDERS: ATTEND Obstetrics & Gynecology
DX: E10.9 Type 1 diabetes mellitus without complications (principal); O09.93 Supervision of high risk pregnancy, unspecified, third trimester
CPT/HCPCS: 36415; 83036

== ENCOUNTER → 2018-10-18 | Outpatient (CLI) | payer OTHER ==
[2018-10-02 23:00] VITALS: BMI 28.3
--- NOTE | 2018-10-18 11:36 | RADIOLOGY IMAGING REPORT ---
FACILITY: [facility] - [place] PATIENT NAME: Babita Floyd : 1990 MR: [id number] V: [id number] EXAM DATE: ORDERING PHYSICIAN: ANG PEREYRA TECHNOLOGIST: Location: [facility] Patient: Babita Floyd : 1990 Visit/Account:[id number] Date of Sevice: 10/18/2018 EXAMINATION: Ultrasound transabdominal OB > 14 weeks with anatomic evaluation HISTORY: Type I diabetes and third trimester, for EFW and AMY COMPARISON: None. TECHNIQUE: Transabdominal imaging was performed for assessment of the fetus and maternal pelvic structures. T ransvaginal imaging was not performed. FINDINGS: Placenta: Anterior without previa. Uterus: Gravid, otherwise normal Cervix: Long and closed. Maternal Ovaries: Not visualized. Maternal and other adnexa findings: Not visualized Intrauterine gestations: One. presentation: Cephalic heart rate: Normal and regular at 1:30 bpm Amniotic fluid index: 14.25 cm Largest amniotic fluid pocket: 4.87 cm Gestational Parameters: BPD: 7.91 cm 31 weeks/ six days, 50% HC: 28.57 cm 31 weeks/ three days, 14% AC: 28.92 cm there 23 weeks/ zero days, 87% FL: 5.74 cm 30 weeks/ one days, 9% Average ultrasound age (AUA): 31 weeks/five days, ALLAN 12/15/2018 Estimated gestational age by LMP: 31 weeks/three days, ALLAN 12/17/2018 Estimated weight (EFW): 1846 grams +/- 270 grams EFW for ALLAN: 52 percentile Anatomic Survey: Anatomic survey not performed IMPRESSION: Single viable fetus in cephalic presentation with an estimated gestational age by measur ements of 31 weeks and five days. Estimated gestational age by LMP is 31 weeks and three days. Estimated weight 1846 g equivalent to the 52nd percentile AMY measured 14.25 cm, MVP 4.87 cm Report Dictated By: Stacy Meza MD at 10/18/2018 11:28 AM Report E-Signed By: Stacy Meza MD at 10/18/2018 11:31 AM LIANEN:JING
== END ==
LOC: US 01:16
PROVIDERS: ATTEND Obstetrics & Gynecology
DX: O09.93 Supervision of high risk pregnancy, unspecified, third trimester (principal); E10.9 Type 1 diabetes mellitus without complications
CPT/HCPCS: 76815

== ENCOUNTER 2018-10-20 13:00 | Outpatient (RCR) | payer OTHER ==
--- NOTE | 2018-09-29 20:55 | PT INITIAL EVALUATION ---
MEDICAL DIAGNOSIS: Thoracic Back Pain TREATMENT DIAGNOSIS: Thoracic Back Pain, Abnormal Posture, Rhomboid Strain DATE OF ONSET: 09/29/18 SUBJECTIVE: Babita is a 28 year old female presenting to physical therapy following recent onset of thoracic pain on the R side that has been present for the last month or two. Pt is 30 weeks and reports that she has had this pain before but that it has progressively got worse throughout the . Pain is increased with computer work for long durations at work or lifting. Pain is currently rated at 1/10, but at the end of the day is more 2- 3/10. Pain reaches 7/10 at worst. Pain is described as burning and occasionally sharp but typically dull and nagging with pain never moving from the one location central or peripherally. REHAB PROBLEM LIST: Increased Pain Decreased Strength Decreased Function Decreased ADL's PREVIOUS MEDICAL HISTORY: PMH significant for Type 1 DM OCCUPATION: Nurse on Med/Surg floor at [employer] OBJECTIVE: Pt is left handed Posture: Pt presents with increased thoracic kyphosis with rounded forward shoulders and B scapulas abducted. ROM: Shoulder ROM: full without pain B excluding horizontal adduction with pain on R. Pt has significant scapular elevation with overhead reaching Thoracic ROM: full with slight pain with flexion. Strength: Shoulder MMT (R, L): flexion: B 5/5 Ext: 4/5, 5/5, abd: B 4+/5, ER: 4+/5, 5/5, IR: B 5/5 Palpation: Pt is ttp along the R rhomboids and distal attachments at scapular border. Sensation: Pt denies numbness or tingling in UE or shoulder. ASSESSMENT: Babita displays signs and symptoms consistent with R rhomboid strain as indicated by the above listed impairments. Physical therapy is indicated to improve pt function with ADL's and occupational demands. Short Term Goals In 4 weeks pt will reduce thoracic/scapular pain to 0/10 with ADL's for improved function. In 4 weeks pt will have full thoracic ROM without pain for improved function with ADL's. In 4 weeks pt will improve B shoulder strength to 5/5 without pain for improved function with ADL's. Patient's Goals Decrease thoracic/scapular pain. PLAN: Patient to be seen for Manual Therapy/STM/MET Strengthening/condition Ice/Heat Range of Motion Spinal Stabilization Ultrasound Stretching Iontophoresis Neuromuscular Re-ed Electrical Stim Posture/Body mechanics [facility] Therapeutic Activities 2x/Week for 4 Weeks If you have any questions, comments, or concerns about this report or plan, please contact me at . Thank you, Ina Navarro, PT, DPT, CLT MTDD
[2018-10-02 23:00] VITALS: BMI 28.3
== END 2018-10-20 18:00 | disposition home or self-care (01) ==
LOC: PT 13:00
PROVIDERS: ATTEND Nurse Practitioner Family
DX: M54.6 Pain in thoracic spine (principal); R29.3 Abnormal posture; E10.8 Type 1 diabetes mellitus with unspecified complications; O99.89 Other specified diseases and conditions complicating pregnancy, childbirth and the puerperium; Z3A.30 30 weeks gestation of pregnancy; O24.011 Pre-existing type 1 diabetes mellitus, in pregnancy, first trimester
CPT/HCPCS: 97161

== ENCOUNTER → 2018-10-23 | Outpatient (CLI) | payer OTHER ==
[2018-10-02 23:00] VITALS: BMI 28.3
== END ==
LOC: LAB 06:34
PROVIDERS: ATTEND Obstetrics & Gynecology
DX: O24.013 Pre-existing type 1 diabetes mellitus, in pregnancy, third trimester (principal)
CPT/HCPCS: 84156

== ENCOUNTER → 2018-11-02 | Outpatient (CLI) | payer OTHER ==
[2018-10-02 23:00] VITALS: BMI 28.3
[2018-11-02 13:54] LABS: PLATELET COUNT, AUTOMATED 159 K/uL (150-450)
== END ==
LOC: LAB 13:42
PROVIDERS: ATTEND Internal Medicine Hematology
DX: D61.9 Aplastic anemia, unspecified (principal)
CPT/HCPCS: 36415; 85025

== ENCOUNTER → 2018-11-08 | Outpatient (CLI) | payer OTHER ==
[2018-10-02 23:00] VITALS: BMI 28.3
--- NOTE | 2018-11-08 15:17 | RADIOLOGY IMAGING REPORT ---
FACILITY: [facility] - [place] PATIENT NAME: Babita Floyd : 1990 MR: [id number] V: [id number] EXAM DATE: ORDERING PHYSICIAN: KOFI ROMEO TECHNOLOGIST: Location: [facility] [place] Patient: Babita Floyd : 1990 Visit/Account:[id number] Date of Sevice: 11/08/2018 EXAMINATION: Ultrasound transabdominal OB > 14 weeks with anatomic evaluation HISTORY: Type I diabetes, size greater than dates COMPARISON: October 18, 2018 TECHNIQUE: Transabdominal imaging was performed for assessment of the fetus and maternal pelvic structures. T ransvaginal imaging was not performed. FINDINGS Placenta: Anterior without previa. Uterus: Gravid, otherwise normal Cervix: Closed Intrauterine gestations: One. presentation: Vertex heart rate: Normal and regular at 150 bpm Amniotic fluid index: 9.8 cm Largest amniotic fluid pocket: 2.6 cm Gestational Parameters: BPD: 8.6 cm 34 weeks, 6 days, 59th percentile HC: 30.9 cm 34 weeks, 4 days, 18th percentile AC: 32.3 cm 36 weeks, 2 days, 94th percentile FL: 6.8 cm 35 weeks, 3 days, 65th percentile Average ultrasound age (AUA): 35 weeks 2 days, ALLAN based on AUA 12/11/2018 Estimated weight (EFW): 2735 grams +/- 400 grams EFW: 80th percentile Anatomic survey was not performed. IMPRESSION: 1. Single live early intrauterine gestation with dates and measurements as above 2. Estimated weight 80th percentile, 2735 g 3. Amniotic fluid index 9.8 cm Report Dictated By: Irwin Gardner DO at 11/08/2018 3:05 PM Report E-Signed By: Irwin Gardner DO at 11/08/2018 3:09 PM WSN:[email or web address]
== END ==
LOC: US 00:05
PROVIDERS: ATTEND Obstetrics & Gynecology
DX: O09.90 Supervision of high risk pregnancy, unspecified, unspecified trimester (principal); E10.9 Type 1 diabetes mellitus without complications
CPT/HCPCS: 76815

== ENCOUNTER → 2018-11-21 | Outpatient (CLI) | payer OTHER ==
[2018-10-02 23:00] VITALS: BMI 28.3
== END ==
LOC: LAB 09:49
PROVIDERS: ATTEND Advanced Practice Midwife
DX: Z36.85 Encounter for antenatal screening for Streptococcus B (principal)
CPT/HCPCS: 87081

== ENCOUNTER 2018-12-20 20:36 | Emergency (ER) | payer OTHER ==
[2018-10-02 23:00] VITALS: Wt 68.0 kg
--- NOTE | 2018-12-20 20:53 | ER Report ---
History and Physical Time Seen By MD: 20:49 Hx. of Stated Complaint: GOT OUT OF SHOWER AND FELT VERY SHORT OF BREATH, DIZZY AND HOT. STATES SHE GAVE 9U INSULIN AT DINNER. HAS HAD THIS DINNER BEFORE AND GAVE HERSELF 7U INSULIN WHICH WAS NOT ENOUGH SO SHE TRIED 9U TODAY. HAD A ON November HPI/ROS CHIEF COMPLAINT: dizziness and shortness of breath HISTORY OF PRESENT ILLNESS: This is a 28 year old female. She was feeling hot, dizzy and short of breath tonight. Had taken extra insulin at dinner for type 1 diabetes, and did have a low blood sugar at that time. This has since come back up and she is feeling a little better. The shortness of breath was concerning. She is a few weeks out from a , and is improving. . Has felt like she had a fever yesterday. No nausea or vomiting. Bowels have been normal. No dysuria or frequency. No headache, normal vision. No chest pain or palpitations. No cough. REVIEW OF SYSTEMS: As above. Allergies: Coded Allergies: oseltamivir (Verified Allergy, Severe, RASH, 12/20/18) Hypotension, rash, itching, shedding of epithelium of mouth and throat Sulfa (Sulfonamide Antibiotics) (Verified Allergy, Mild, 12/20/18) Penicillins (Verified Allergy, Unknown, 12/20/18) Home Meds Active Scripts Nitrofurantoin Monohyd/M-Cryst (MACROBID 100 MG CAPSULE) 100 Mg Capsule, 100 MG PO BID for 5 Days, #10 CAPSULE 0 Refills Prov:NERI CORBIN MD 12/21/18 Breast Pump (Breast Pump) 1 Each Each, EA for Mother, #1 0 Refills Use double electric breast pump as directed / needed for support. : 91 Prov:AIME AGUIAR DO 12/20/18 Methylphenidate Hcl (METHYLPHENIDATE ER) 36 Mg Tab.er.24, 1 TAB PO QDAY, #30 TAB 0 Refills Prov:MOLLY TYLER APRNP-C 12/19/18 [Dexcom Sensors] No Conflict Check Prov:MOLLY TYLER APRN RESERVE OPERATOR-C 09/27/18 Insulin Aspart (NOVOLOG) 100 Unit/Ml Soln, 102 UNIT SUBQ DAILY, #3 VIAL 4 Refills Prov:MOLLY TYLER JERAMIE RESERVE OPERATOR-C 08/29/18 Levothyroxine Sodium (SYNTHROID) 88 Mcg Tablet, 1 TAB PO QDAY, #90 TAB 0 Refills Prov:IGGY TYLERWALDEMAR BOBO RESERVE OPERATOR-C 08/16/18 One Touch Ultra Test Strips (ONE TOUCH ULTRA TEST STRIPS) 1 Each Strip, 1 EACH MC 6-10 daily, #250 STRIP 6 Refills Prov:ELIAN-DAJUANMOLLY BOBO RESERVE OPERATOR-C 08/16/18 Glucagon (GLUCAGEN) 1 Mg Kit, 1 SYR IM PRN, #1 KIT Prov:OMLLY TYLER APRN RESERVE OPERATOR-C 08/03/17 [diabetic supplies] No Conflict Check Prov:KWASIDAJUANIGGYMOLLYWALDEMAR BOBO RESERVE OPERATOR-C 07/29/17 Pen Needle, Diabetic (Insulin Pen Needle) 31 Gauge X 1/6" Dis.needle, EACH SC 5XD, #150 0 Refills Prov:MOLLY TYLER APRN RESERVE OPERATOR-C 07/05/17 [Diabetes Supplies] No Conflict Check Prov:ELIAN-DAJUANMOLLY BOBO RESERVE OPERATOR-C 06/28/17 [Test Strips] 1 EACH No Conflict Check, 1 EACH MC DIRECTED, #300 EACH 12 Refills Prov:IGGY TYLERWALDEMAR BOBO RESERVE OPERATOR-C 06/02/17 Reported Medications Cholecalciferol (Vitamin D3) (VITAMIN D3) 1,000 Unit Tablet, 1000 UNIT PO, TAB 12/19/18 Insulin Aspart (NOVOLOG) 100 Unit/1 Ml Cartridge, 40 UNIT SQ DAILY 08/14/17 Multivits,Ca,Minerals/Iron/Fa (WOMEN'S DAILY CAPLET) 1 Each Tablet, 1 EACH PO DAILY 06/02/17 Discontinued Reported Medications Aspirin (LOW DOSE ASPIRIN EC) 81 Mg Tablet.dr, 81 MG PO 09/25/18 Reviewed Nurses Notes: Yes Hx Smoking: No Smoking Status: Never Smoker Exposure to Second Hand Smoke?: No Hx Substance Use Disorder: No Hx Alcohol Use: No Constitutional Vital Sign - Last 24 Hours 12/20/18 12/20/18 12/20/18 12/20/18 20:46 21:00 21:30 21:35 Temp 98.0 Pulse 73 70 76 74 Resp 20 B/P (MAP) 105/71 101/66 (78) Pulse Ox 90 93 95 94 O2 Delivery Room Air 12/20/18 12/20/18 12/20/18 12/20/18 21:50 22:00 22:05 23:05 Pulse 74 76 80 B/P (MAP) 107/60 (76) 96/73 (81) 118/72 (87) Pulse Ox 95 96 12/20/18 12/20/18 12/20/18 12/20/18 23:20 23:30 23:35 23:50 Pulse 68 70 71 B/P (MAP) 112/75 (87) Pulse Ox 96 93 90 12/21/18 12/21/18 00:00 00:05 Pulse 78 B/P (MAP) 101/65 (77) Pulse Ox 96 Intake and Output 12/20/18 12/20/18 12/21/18 15:04 23:04 07:04 Intake Total 1000 ml Balance 1000 ml Physical Exam General Appearance: The patient is alert. No acute distress. Non-toxic in appearance. Eyes: Pupils are equal, round. No pallor, injection or icterus. ENT: Mucous membranes are moist. Normal oral mucosa. Posterior oropharynx is normal. Neck: Supple and non tender. No lymphadenopathy. Respiratory: Lungs are clear to auscultation. Cardiovascular: Regular rate and rhythm. No murmurs, gallops or rubs. Normal capillary refill. No edema. Gastrointestinal: Abdomen is soft and non tender. Nondistended. Normal active bowel sounds. incision healing well, slight firmness under skin, scar tissue forming as expected. Neurological: Alert and oriented x3. No focal neurologic deficits Skin: Warm and dry. No rashes. Musculoskeletal: Extremities are nontender. Full range of motion. DIFFERENTIAL DIAGNOSIS: After history and physical exam, differential diagnosis was considered for nonspecific symptoms. Will check labs including metabolic panel, troponin, blood count and urine test. EKG and chest x-ray. Blood sugars now back to normal and symptoms are mostly gone. Medical Decision Making Data Points Result Diagram: 12/20/18211612/20/182116 Laboratory Hematology Test 12/20/18 21:17 White Blood Count 5.4 k/uL (4.5-11.0) Red Blood Count 3.99 M/uL (4.17-5.56) L Hemoglobin 13.2 g/dL (12.0-16.0) Hematocrit 38.6 % (34.0-47.0) Mean Corpuscular Volume 96.6 fL (80.0-96.0) H Mean Corpuscular Hemoglobin 33.0 pg (26.0-33.0) Mean Corpuscular Hemoglobin Concent 34.2 g/dL (32.0-36.0) Red Cell Distribution Width 15.1 % (11.5-14.5) H Platelet Count 297 K/uL (150-450) Mean Platelet Volume 7.5 fL (7.2-11.1) Neutrophils (%) (Auto) 63.7 % (39.4-72.5) Lymphocytes (%) (Auto) 26.0 % (17.6-49.6) Monocytes (%) (Auto) 8.3 % (4.1-12.4) Eosinophils (%) (Auto) 0.9 % (0.4-6.7) Basophils (%) (Auto) 1.1 % (0.3-1.4) Nucleated RBC Relative Count (auto) 0.0 /100WBC Neutrophils # (Auto) 3.5 K/uL (2.0-7.4) Lymphocytes # (Auto) 1.4 K/uL (1.3-3.6) Monocytes # (Auto) 0.5 K/uL (0.3-1.0) Eosinophils # (Auto) 0.0 K/uL (0.0-0.5) Basophils # (Auto) 0.1 K/uL (0.0-0.1) Nucleated RBC Absolute Count (auto) 0.00 K/uL Chemistry Test 12/20/18 21:17 Sodium Level 139 mmol/L (137-145) Potassium Level 3.5 mmol/L (3.5-5.0) Chloride Level 103 mmol/L (98-107) Carbon Dioxide Level 25 mmol/L (22-31) Blood Urea Nitrogen 19 mg/dl (7-18) Creatinine 0.90 mg/dl (0.52-1.04) Glomerular Filtration Rate Calc > 60.0 Random Glucose 98 mg/dl (75-110) Calcium Level 9.5 mg/dl (8.4-10.2) Total Bilirubin 0.3 mg/dl (0.2-1.3) Aspartate Amino Transf (AST/SGOT) 22 U/L (0-35) Alanine Aminotransferase (ALT/SGPT) 32 U/L (0-56) Alkaline Phosphatase 124 U/L (0-126) Troponin I < 0.012 ng/ml Total Protein 7.3 g/dl (6.3-8.2) Albumin 3.9 g/dl (3.5-5.0) Coagulation Test 12/20/18 21:17 D-Dimer Quantitative (PE/DVT) 2.90 ug/ml (0-0.50) Urinalysis Test 12/20/18 21:46 Urine Color Yellow Urine Clarity Cloudy Urine pH 5.0 pH (4.8-9.5) Urine Specific Bode 1.014 Urine Protein 30 mg/dL (NEGATIVE) Urine Glucose (UA) Negative mg/dL (NEGATIVE) Urine Ketones Negative mg/dL (NEGATIVE) Urine Blood Large (NEGATIVE) Urine Nitrite Negative (NEGATIVE) Urine Bilirubin Negative (NEGATIVE) Urine Urobilinogen Negative mg/dL (0.2-1.9) Urine Leukocyte Esterase Large (NEGATIVE) Urine RBC 91 /HPF (0-2/HPF) Urine WBC 1299 /HPF (0-5/HPF) Urine WBC Clumps Many /HPF Urine Squamous Epithelial Cells Many /LPF (</=FEW) Urine Bacteria Few /HPF (NONE-FEW) Urine Hyaline Casts Moderate /LPF (NONE-FEW) Urine Mucus Few /HPF (NONE-FEW) EKG/Imaging EKG Interpretation 12 lead EKG: Rhythm: Sinus rhythm with sinus arrhythmia, rate 67, sinus arrhythmia lo oks like changes with respiration. Usk: normal QRS: normal ST segments: normal Imaging CHEST SINGLE AP COMPARISONS: None. ADDITIONAL PERTINENT HISTORY: Shortness of breath with recent section FINDINGS: Cardiomediastinal silhouette: Negative. Pulmonary vasculature: Negative. Lung daniel: Negative. Pleural spaces: Negative. Osseous structures: Negative. Surrounding soft tissues: Negative. IMPRESSION: No evidence of acute cardiopulmonary disease. Report Dictated By: Júnior Sun MD at 12/20/2018 10:[address] PE DATE: 12/20/2018 11:20 PM INDICATION: Short of breath. COMPARISON: Same-day radiograph. TECHNIQUE: Axial CT angiogram was obtained through the chest with intravenous contrast. Sagittal and coronal MPR and MIP coronal reformations were also generated. 75 mL isovue 370. One of the following dose optimization techniques was utilized in the performance of this exam: Automated exposure control; adjus tment of the mA and/or kV according to the patient's size; or use of an iterative reconstruction technique. Specific details can be referenced in the facility's radiology CT exam operational policy. FINDINGS: Thyroid / Thoracic Inlet: No visualized thyroid nodule. Shotty lymph nodes are likely reactive. Pulmonary Arteries: Normal. Heart and Aorta: Normal-size heart with no pericardial effusion. Nonaneurysmal thoracic aorta. Mediastinum and Anh: No lymphadenopathy. Lungs and Pleura: No pleural effusion or pneumothorax. No suspicious consolidation. Breast and Axilla: No axillary lymphadenopathy. Upper Abdomen: No visualized acute abnormality. Bones and Soft Tissues: No acute abnormality or suspicious lesion. IMPRESSION: No pulmonary embolism or other acute abnormality. Report Dictated By: Renato Singh MD at 12/20/2018 11:20 PM ED Course/Re-evaluation Clinical Indication for ER IV: Hydration, IV Access ED Course Labs look good. Blood sugars back to normal. Her d-dimer was elevated, likely due to the recent and healing, but with the shortness of breath which resolved her we went ahead and did a CT angiogram. Initial chest x-ray negative. CT angiogram of the chest was negative for PE. Urinalysis did come back showing signs of urinary tract infection. Think her symptoms earlier tonight were likely a combination of the low blood sugar as well as her urinary tract infection. She is breast-feeding and has different allergies to antibiotics, so we'll go with Macrobid. Because her child is young with a history of some jaundice we will have her pump and discard breast milk and bottle feed while she is on the Macrobid. Decision to Disposition Date: Dec 21, 2018 Decision to Disposition Time: 00:09 Depart Departure Latest Vital Signs Vital Signs Date Time Temp Pulse Resp B/P (MAP) Pulse Ox O2 Delivery O2 Flow Rate FiO2 12/21/18 00:05 78 96 12/21/18 00:00 101/65 (77) 12/20/18 20:46 98.0 20 Room Air Impression: Primary Impression: Hypoglycemia due to type 1 diabetes mellitus Additional Impression: Urinary tract infection Condition: Improved Disposition: HOME OR SELF-CARE Referrals: AIME AGUIAR DO (PCP) New Scripts Nitrofurantoin Monohyd/M-Cryst (MACROBID 100 MG CAPSULE) 100 Mg Capsule 100 MG PO BID for 5 Days, #10 CAPSULE 0 Refills Prov: NERI CORBIN MD 12/21/18 Patient Instructions: Urinary Tract Infection in Women (ED) Additional Instructions: We think you symptoms tonight were a combination of the low blood sugar and p ossible urinary tract infection. The rest of the workup tonight was negative. Increase fluid intake. Take Macrobid 100mg twice a day for 5 days. This is generally safe in infants that are with two exceptions. Infants with G6PD deficiency and infants < 1 month who have hyperbilirubinemia. For this reason, we would like to have you bottle feed for the next 7 days, and pump and discard breast milk. Follow-up with your primary care provider as planned. Problem Qualifiers Additional Impression: Urinary tract infection Urinary tract infection type: acute cystitis Hematuria presence: without hematuria Qualified Codes: N30.00 - Acute cystitis without hematuria NERI CORBIN MD Dec 20, 2018 20:53
[2018-12-20 21:27] LABS: PLATELET COUNT, AUTOMATED 297 K/uL (150-450)
--- NOTE | 2018-12-20 21:57 | EKG ---
FACILITY: [facility] PATIENT NAME: DANIA POSADA : [id number] MR: [id number] V: [id number] EXAM DATE: ORDERING PHYSICIAN: NERI CORBIN TECHNOLOGIST: LESTER Diego Reason : SOB Blood Pressure : / mmHG Vent. Rate : 067 BPM Atrial Rate : 067 BPM P-R Int : 134 ms QRS Dur : 076 ms QT Int : 380 ms P-R-T Axes : 027 086 033 degrees QTc Int : 401 ms Sinus rhythm with marked sinus arrhythmia No acute appearing findings When compared with ECG of 27-JUL-2017 14:57, No significant change was found Confirmed by KATLYN BAZZI ([id number]) on 12/21/2018 5:37:18 AM Referred By: Confirmed By:KATLYN BAZZI
--- NOTE | 2018-12-20 22:11 | RADIOLOGY IMAGING REPORT ---
FACILITY: [facility] PATIENT NAME: Babita Floyd : 1990 MR: [id number] V: [id number] EXAM DATE: ORDERING PHYSICIAN: NERI CORBIN TECHNOLOGIST: Location: [facility] - [place], [place] Patient: Babita Floyd : 1990 Visit/Account:[id number] Date of Sevice: 12/20/2018 CHEST SINGLE AP COMPARISONS: None. ADDITIONAL PERTINENT HISTORY: Shortness of breath with recent section FINDINGS: Cardiomediastinal silhouette: Negative. Pulmonary vasculature: Negative. Lung daniel: Negative. Pleural spaces: Negative. Osseous structures: Negative. Surrounding soft tissues: Negative. IMPRESSION: No evidence of acute cardiopulmonary disease. Report Dictated By: Júnior Sun MD at 12/20/2018 10:01 PM Report E-Signed By: Júnior Sun MD at 12/20/2018 10:03 PM WSN:[id number]
[2018-12-20] MEDS ORDERED: NS(*) 0.9% 1000 ML BAG 1,000 ML IV ONE (22:15)
[2018-12-20] MEDS ORDERED: IOPAMIDOL 76% 100 ML INFUS BTL 100 ML ONE (22:41)
[2018-12-20] MEDS ORDERED: NS(*) 0.9% 50 ML BAG 50 ML ONE (22:41)
--- NOTE | 2018-12-20 23:41 | RADIOLOGY IMAGING REPORT ---
FACILITY: [facility] PATIENT NAME: Babita Floyd : 1990 MR: [id number] V: [id number] EXAM DATE: ORDERING PHYSICIAN: NERI CORBIN TECHNOLOGIST: Location: [facility] Patient: Babita Floyd : 1990 Visit/Account:[id number] Date of Sevice: 12/20/2018 CT PE DATE: 12/20/2018 11:20 PM INDICATION: Short of breath. COMPARISON: Same-day radiograph. TECHNIQUE: Axial CT angiogram was obtained through the chest with intravenous contrast. Sagittal an d coronal MPR and MIP coronal reformations were also generated. 75 mL isovue 370. One of the follow ing dose optimization techniques was utilized in the performance of this exam: Automated exposure con trol; adjustment of the mA and/or kV according to the patient's size; or use of an iterative reconst ruction technique. Specific details can be referenced in the facility's radiology CT exam operationa l policy. FINDINGS: Thyroid / Thoracic Inlet: No visualized thyroid nodule. Shotty lymph nodes are likely reactive. Pulmonary Arteries: Normal. Heart and Aorta: Normal-size heart with no pericardial effusion. Nonaneurysmal thoracic aorta. Mediastinum and Anh: No lymphadenopathy. Lungs and Pleura: No pleural effusion or pneumothorax. No suspicious consolidation. Breast and Axilla: No axillary lymphadenopathy. Upper Abdomen: No visualized acute abnormality. Bones and Soft Tissues: No acute abnormality or suspicious lesion. IMPRESSION: No pulmonary embolism or other acute abnormality. Report Dictated By: Renato Singh MD at 12/20/2018 11:20 PM Report E-Signed By: Renato Singh MD at 12/20/2018 11:34 PM WSN:[id number]
[2018-12-21] VITALS: BP 101/65
[2018-12-21] MEDS ORDERED: NITR-105 PO (00:14)
[2018-12-21] MEDS ORDERED: NITROFURANTOIN MONO 100 MG PO ONE (00:15)
== END 2018-12-21 00:24 | disposition home or self-care (01) ==
LOC: ER 20:47
DX: E10.649 Type 1 diabetes mellitus with hypoglycemia without coma (principal); N30.00 Acute cystitis without hematuria
CPT/HCPCS: 36415; 71045; 71275; 81001; 84484; 85025; 85379; 87088; 93005; 96360; 99284; J7030; J7050; Q9967; 82040; 82247; 82310; 82374; 82435; 82565; 82947; 84075; 84132; 84155; 84295; 84450; 84460; 84520

== ENCOUNTER → 2018-12-20 | Outpatient (CLI) | payer OTHER ==
[2018-10-02 23:00] VITALS: BMI 28.3
[~2018-12-20] MED LIST changes: +BREA1EAC2; +CHOL10005 PO; +METH36TA2 PO
== END ==
LOC: AMB 20:22
PROVIDERS: ATTEND Nurse Practitioner
DX: R06.00 Dyspnea, unspecified (principal); R42 Dizziness and giddiness
CPT/HCPCS: A0425; A0427